=== PATIENT | male | born 1985 | race Two or more races ===

== ENCOUNTER 2017-09-06 17:03 | Emergency (ER) | payer OTHER ==
[~2017-09-06] VITALS: Ht 172.7 cm; Wt 68.5 kg
[2017-09-06 17:09] VITALS: BP 134/70
--- NOTE | 2017-09-06 17:28 | NUR ---
RADIOLOGY AT BEDSIDE FOR CHEST XRAY.
[2017-09-06] MEDS ORDERED: LORAZEPAM 1 MG TABLET PO ONE (17:30)
[2017-09-06] MEDS ORDERED: LORAZEPAM 1 MG TABLET ONE (17:59)
== END 2017-09-06 18:24 | disposition home or self-care (01) ==
LOC: ER 17:04
DX: F41.0 Panic disorder [episodic paroxysmal anxiety] (principal); F43.9 Reaction to severe stress, unspecified; R06.4 Hyperventilation; Z88.1 Allergy status to other antibiotic agents
CPT/HCPCS: 71045; 93005; 99284; A4606; Z7610